=== PATIENT | female | born 1990 ===

== ENCOUNTER → 2017-06-25 | Outpatient (CLI) | payer OTHER ==
[~2017-06-25] MED LIST: CONEX TABLET1 EACH PO; LEVAQUIN500 MG PO; SYNTHROID50 MCG PO; TESSALON PERLE100 M1 PO
== END | disposition home or self-care (01) ==
LOC: PPHC 17:50
DX: R07.0 Pain in throat (principal); R51 Headache; R09.81 Nasal congestion; M54.89 Other dorsalgia